=== PATIENT | male | born 1950 | race Caucasian/White ===

== ENCOUNTER 2016-08-24 06:48 | Inpatient (IN) | payer MEDICARE, BC ==
--- NOTE | ~2016-08-24 | OR ---
Unit #: [id number] #: [id number] Patient: ADRIAN CAMPOS [id number] [address] [address] [id number] I MR#: [id number] NAME: ADRIAN CAMPOS ROOM: [facility] Date of Procedure: 08/24/2016 Admission Date: 08/24/2016 Surgeon: Farrukh Sands M.D. : 1950 Attending Physician: Farrukh Sands M.D. Primary Care Physician: Erin Byers M.D. OPERATIVE REPORT PREOPERATIVE DIAGNOSIS Asymptomatic high-grade left internal carotid artery stenosis. POSTOPERATIVE DIAGNOSIS Asymptomatic high-grade left internal carotid artery stenosis. PROCEDURES PERFORMED Left carotid endarterectomy with bovine pericardial patch. Intraoperative carotid duplex scan. 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 ANESTHESIA General endotracheal. ESTIMATED BLOOD LOSS 50 mL. COMPLICATIONS None. INDICATIONS FOR PROCEDURE Mr. Adrian Campos is a 65-year-old gentleman with a long history of carotid disease, who has been followed with serial imaging studies. His Doppler studies now indicate greater than or equal to 70% stenosis of his left internal carotid artery. After satisfactory preoperative cardiac clearance, he was taken to the operating room to undergo elective left carotid endarterectomy to decrease his risk of neurologic events. DESCRIPTION OF PROCEDURE The patient was placed in supine position with his neck extended and his head turned to the right. His left neck was prepped and sterilely draped. A longitudinal incision was made along the anterior border of the sternocleidomastoid. Dissection continued through the subcutaneous tissue and platysma with the use of electrocautery. The external jugular vein was doubly ligated with 3-0 silk ties and divided. The sternocleidomastoid was reflected laterally to expose the internal jugular vein. The facial vein was doubly ligated with 3-0 silk ties and divided. The jugular vein was reflected laterally to expose the carotid artery. The common carotid, internal carotid, external carotid, and superior Unit #: [id number] #: [id number] Patient: ADRIAN CAMPOS thyroid arteries were dissected free circumferentially. The vagus nerve, hypoglossal nerve, and ansa cervicalis were all identified and protected throughout the dissection. The hypoglossal nerve was mobilized superiorly and medially by ligating and dividing the overlying vessels. The patient was given heparin 8000 units intravenously. Vascular clamps were placed in sequence on the internal, external, and common carotid arteries. The superior thyroid artery was controlled with a vessel loop. Stump pressures were measured at 45 mmHg systolic, which was felt to be inadequate. Vascular clamps were removed. A Reese-Inahara outlying shunt was prepared. Vascular clamps were then placed back in sequence. An 11-blade was used to make a longitudinal incision on the common carotid artery, which was extended proximally and distally with Piedra scissors. The arteriotomy was extended in each direction beyond any obvious plaque. The Reese-Inahara shunt was placed from the common carotid to the internal carotid artery to maintain flow during the endarterectomy. Flow was confirmed through the shunt with the Doppler. The endarterectomy started in the common carotid artery, where the proximal extent of the plaque was transected with Piedra scissors. The endarterectomy continued up into the internal carotid artery, where the distal end of the plaque was feathered to leave a smooth tapered surface. The external carotid artery was everted to remove plaque from its orifice. Additional debris was removed from the lumen of the vessel until it was completely clean. The lumen was also copiously flushed with heparinized saline. Prior to completion of the anastomosis, the shunt was clamped and removed. Blood was flushed retrograde and antegrade. Following completion of the anastomosis, vascular clamps were removed in sequence to flush any residual debris through the external carotid circulation. Following removal of the clamps, there was an easily palpable pulse in the internal and external carotid arteries. Completion intraoperative duplex scanning revealed a widely patent internal and external carotid artery with no significant residual plaque or narrowing. Protamine 50 mg intravenously was given to reverse the anticoagulation. Additional hemostasis was achieved with the use of electrocautery. The wound was closed in layers using running 2-0 and 3-0 Vicryl. The skin was closed using running 4-0 Vicryl subcuticular sutures. Sterile dressings were applied. Sponge and needle count were correct. The patient tolerated the procedure well and was taken to the postanesthesia care unit in satisfactory condition. Dictated by.Jo. Lydia Riley/kwesi TD: 08/24/2016 22:54 JOB #: [id number] CC: Lydia Gallardo M.D. Unit #: [id number] #: [id number] Patient: ADRIAN CAMPOS OPERATIVE REPORT Page 1 of 1 X SelfFarrukh MD PROCEDURE OPERATIVE NOTE
--- NOTE | ~2016-08-24 | US38 ---
[facility] A Service of [facility] RADIOLOGY TEXT RESULTS PATIENT: ADRIAN CAMPOS LOCATION: [address] : 48 UNIT #: [id number] AGE: [address]: Farrukh Sands MD SEX: M ORDER DR: [id number] [facility] [address] [facility]. [place], [place] [address] [id number] MR#: [id number] Acc #: [id number] NAME: ADRIAN CAMPOS. : 1950 SEX: M STUDY DATE/TIME: 08/24/2016 10:11 UNIT: [facility] ROOM: [facility] STUDY DESCRIPTION: US Carotid W/Doppler Unilatera Attending Physician: Farrukh Sands M.D. Ordering Physician: Farrukh Sands M.D. Primary Care Physician: Erin Byers M.D. MEDICAL IMAGING REPORT This report is preliminary unless electronic signature is present EXAM Left carotid duplex CLINICAL HISTORY Status post left carotid endarterectomy. FINDINGS There is patent flow seen throughout the left common carotid, internal carotid and external carotid arteries. There is mild, diffuse, atherosclerosis noted of the left common carotid artery. The left common carotid artery peak velocity is 51 cm/sec. The left internal carotid artery peak systolic velocities are: Proximal 85 cm/sec, mid 63 cm/sec, distal 134 cm/sec. The left external carotid artery peak velocity is 91 cm/sec. The left ICA/CCA ratio is 2.6. IMPRESSION The left carotid artery is widely patent, status post left carotid endarterectomy. While by duplex evidence the distal ICA may have a velocity of 50% to 69% stenosis by duplex criteria, it does not appear to be so by B-mode imaging, and more likely to transitional. Dictated by... Vini Mac M.D. THIS IS AN ELECTRONICALLY VERIFIED REPORT Vini Mac M.D. at 08/25/2016 10:05 AM Virgilio TD: 08/24/2016 23:22 JOB #: [id number] [facility] A Service of [facility] RADIOLOGY TEXT RESULTS PATIENT: ADRIAN CAMPOS LOCATION: [facility]ICCU3-18 : 48 UNIT #: [id number] AGE: [address]: Farrukh Sands MD SEX: M ORDER DR: MEDICAL IMAGING REPORT Page 1 of 1 COPY
--- NOTE | ~2016-08-24 | DS ---
Unit #: [id number] #: [id number] Patient: ADRIAN CAMPOS [id number] [address] [facility]. [place], [place] [address] [id number] I MR#: [id number] NAME: ADRIAN CAMPOS. ROOM: [facility] Age: 65 Sex: M Admission Date: 08/24/2016 : 1950 Discharge Date: 08/25/2016 Attending Physician: Farrukh Sands M.D. Primary Care Physician: Erin Byers M.D. DISCHARGE SUMMARY PRIMARY DISCHARGE DIAGNOSIS Asymptomatic left carotid stenosis. HISTORY This is a 65-year-old male who presented to [facility] to undergo left carotid endarterectomy to treat his asymptomatic left carotid stenosis. BRIEF SUMMARY OF HOSPITAL COURSE Following surgery, Mr. Campos was admitted to ICU 3, bed 18. Overnight he complained of a slight headache, which had resolved by the morning. Upon rounding in the morning, Mr. Campos reports that he is feeling well and ready to go home. He ended up having a Herring catheter placed last night, as he has a history of neurogenic bladder and reports that he has trouble voiding while lying in bed. The catheter was placed with a large amount of urine return. The patient tolerated a normal breakfast this morning. He has not ambulated outside of the room at this time and is planning to do so. ASSESSMENT GENERAL: The patient is awake, alert and oriented. No acute distress. RESPIRATORY: Lungs are clear. Breathing nonlabored. Room air. SKIN: Left neck incision well approximated with no redness, drainage or swelling noted. 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 He has full motor control of his tongue. MEDICATION LIST 1. Norvasc 10 mg at bedtime. 2. Metoprolol 100 mg b.i.d. 3. Atorvastatin 40 mg daily. 4. Benazepril 40 mg daily. 5. Inspra 25 mg p.o. daily. 6. Aspirin 81 mg daily. 7. [place] 5/325 mg p.o. q.4 hours p.r.n. pain control (dispensed #30 prescription). PLAN Patient will be discharged after he has ambulated successfully around the nurses' station and after his Herring catheter has been removed and he has voided without the Herring. DISCHARGE INSTRUCTIONS Remove all IVs. He may resume regular diet. He is to follow up with Unit #: [id number] #: [id number] Patient: ADRIAN CAMPOS in 2 weeks. He is to have no driving x2 weeks. He may wash the neck incision daily with regular soap and water. CONDITION The patient's condition is stable. DISPOSITION Home. Dictated by... Edwar Cowan APRN for Lydia Riley/zainab TD: 08/26/2016 14:04 JOB #: [id number] DISCHARGE SUMMARY Page 1 of 1 X X DISCHARGE SUMMARY
[~2016-08-24 06:48] MED LIST: ADALAT CC PO; ASPIRIN EC81 M1 PO; ASPIRIN81 M2 PO; BENAZEPRIL PO; CRESTOR PO; HCTZ PO; INSPRA25 MG PO; INSULIN PUMP-NOVOLOG; KERYDIN10 ML TOP; LIPITOR40 MG PO; LOPRESSOR PO; NORVASC10 MG PO
[2016-08-24 08:07] LABS: BUN/CREATININE RATIO 17.77; CALCIUM SERUM 9.2 mg/dL (8.4-10.2); CREATININE SERUM 0.9 mg/dL (0.6-1.4); GLOM FILT RATE Estimated 88.1 mL/min (>60); POTASSIUM 5.1 mmol/L (3.5-5.1)
[2016-08-25] MEDS ORDERED: HYDROCODON-ACE1 EAC7 PO (10:43)
[2016-11-15] MEDS ORDERED: INSULIN PUMP SUBQ (12:29)
== END 2016-08-25 11:50 | disposition home or self-care (01) | DRG 38 ==
LOC: CSUR 06:48 → CPACUOF 10:35 → CICCU3 10:35
PROVIDERS: Surgery Vascular Surgery
PROC: 03CL0ZZ Extirpation of Matter from Left Internal Carotid Artery, Open Approach (ICD-10-PCS; 2016-08-24)
PROC: 03CN0ZZ Extirpation of Matter from Left External Carotid Artery, Open Approach (ICD-10-PCS; 2016-08-24)
PROC: 03UL0KZ Supplement Left Internal Carotid Artery with Nonautologous Tissue Substitute, Open Approach (ICD-10-PCS; 2016-08-24)
PROC: 03CJ0ZZ Extirpation of Matter from Left Common Carotid Artery, Open Approach (ICD-10-PCS; principal; 2016-08-24 08:30)
DX: I65.22 Occlusion and stenosis of left carotid artery (principal); E87.1 Hypo-osmolality and hyponatremia; I10 Essential (primary) hypertension; R51 Headache; N31.9 Neuromuscular dysfunction of bladder, unspecified; Z79.82 Long term (current) use of aspirin; Z79.4 Long term (current) use of insulin; Z96.41 Presence of insulin pump (external) (internal); I25.10 Atherosclerotic heart disease of native coronary artery without angina pectoris; E11.319 Type 2 diabetes mellitus with unspecified diabetic retinopathy without macular edema
CPT/HCPCS: 36415; 80048; 82947; 85027; 85610; 85730; 86850; 86900; 86901; 93882; 94760; 94761; J0330; J0690; J1644; J2250; J2405; J2710; J2720; J3010

== ENCOUNTER → 2016-11-17 | Day surgery (SDC) | payer MEDICARE, BC ==
[~2016-11-17] MED LIST changes: +HYDROCODON-ACE1 EAC7 PO; +INSULIN PUMP SUBQ
--- NOTE | ~2016-11-17 | EKG ---
PATIENT: ADRIAN CAMPOS UNIT #: [id number] Ventricular Rate: 56 BPM Atrial Rate: 56 BPM P-R Interval: 180 ms QRS Duration: 86 ms Q-T Interval: 394 ms QTC Calculation(Bezet): 380 ms P [place]: 35 degrees Calculated R [place]: -13 degrees Calculated T [place]: 25 degrees Diagnosis Line: Sinus bradycardia Diagnosis Line: Otherwise normal ECG Diagnosis Line: No previous ECGs available Diagnosis Line: Confirmed by HONORIO CERDA MD ([id number]) on 11/18/2016 Diagnosis Line: 3:44:57 PM INTERPRETING MD: PRASHANT [place]
--- NOTE | ~2016-11-17 | OR ---
Unit #: [id number] #: [id number] Patient: ADRIAN CAMPOS [id number] [address] [address] [id number] MR#: [id number] NAME: ADRIAN CAMPOS ROOM: Date of Procedure: 11/17/2016 Admission Date: 11/17/2016 Surgeon: Dameon Amador M.D. : 1950 Attending Physician: Dameon Amador M.D. Referring Physician: Dameon Amador M.D. Primary Care Physician: Erin Byers M.D. OPERATIVE REPORT PREOPERATIVE DIAGNOSIS Urinary retention. POSTOPERATIVE DIAGNOSIS Urinary retention. PROCEDURE PERFORMED Removal of stage I InterStim. ANESTHESIA General. DESCRIPTION OF PROCEDURE After informed consent, he was taken to the operating room, placed under general anesthetic, placed prone. His low back and buttock area were prepped and draped in usual sterile fashion. His two incisions were opened sharply and with sharp and blunt dissection, the lead was dissected free from surrounding tissue. Care was taken not to cut the lead. The lead was removed intact. The external wire leading to the lead that was tunneled, was also removed without difficulty. Copious amount of irrigation was used prior to closure. Hemostasis was achieved using electrocautery. The incisions were closed in multiple layers and using Vicryl and Monocryl suture. Dermabond was placed across the incision. 0.5% Marcaine without epinephrine was used for local anesthetic. He tolerated the procedure well. All counts were correct at the end of the procedure. He will be discharged home and return to see me as an outpatient. Dictated by... Ldyia MoultonB/modl TD: 11/17/2016 18:43 JOB #: [id number] Unit #: [id number] #: [id number] Patient: ADRIAN CAMPOS OPERATIVE REPORT Page 1 of 1 X Dameon Amador MD PROCEDURE OPERATIVE NOTE
[2016-11-17 16:10] LABS: BUN/CREATININE RATIO 21.25; CALCIUM SERUM 8.9 mg/dL (8.4-10.2); CREATININE SERUM 0.8 mg/dL (0.6-1.4); GLOM FILT RATE Estimated 92.5 mL/min (>60)
== END | disposition home or self-care (01) ==
LOC: CSUR 14:40
PROVIDERS: Urology
DX: R33.9 Retention of urine, unspecified (principal); I25.10 Atherosclerotic heart disease of native coronary artery without angina pectoris; E11.319 Type 2 diabetes mellitus with unspecified diabetic retinopathy without macular edema; D64.9 Anemia, unspecified; E87.6 Hypokalemia; E87.1 Hypo-osmolality and hyponatremia; F17.210 Nicotine dependence, cigarettes, uncomplicated; Z79.84 Long term (current) use of oral hypoglycemic drugs; Z79.82 Long term (current) use of aspirin; Z79.899 Other long term (current) drug therapy; Z90.49 Acquired absence of other specified parts of digestive tract; Z98.890 Other specified postprocedural states
CPT/HCPCS: 80048; 82947; 93005; J0690; J2250; J2405; J3010